=== PATIENT | male | born 1960 | race Caucasian/White ===

== ENCOUNTER → 2016-12-27 | Outpatient (CLI) | payer BC ==
[2016-12-27] MEDS: Sodium Chloride 0.9% 50 ML SDV FLUSH SCH (09:36)
[2016-12-27] MEDS: Iopamidol 612 MG/ML 75 ML Bottle IVPUSH ONE (09:36)
== END ==
LOC: KA.CT 09:03
PROVIDERS: ATTEND Family Medicine
DX: R10.84 Generalized abdominal pain (principal); K76.9 Liver disease, unspecified; N28.9 Disorder of kidney and ureter, unspecified; Z98.890 Other specified postprocedural states
CPT/HCPCS: 74177; Q9967

== ENCOUNTER 2021-08-30 14:51 | Emergency (ER) | payer BC ==
--- NOTE | 2021-08-30 15:00 | EDM.PDOC ---
ED HPI GENERAL MEDICAL PROBLEM - General Chief Complaint: Laceration Stated Complaint: LACERATION Time Seen by Provider: 08/30/21 14:54 Source of Information: Reports: Patient, Family - History of Present Illness INITIAL COMMENTS - FREE TEXT/NARRATIVE: Miguel, 60-year-old male, was siting in his crossbow when the limb struck the base of the left thumb, palmar surface. This caused 3 horizontal lacerations, 2 of which made full-thickness into the subcutaneous tissue. He has no other issues or complaints. Bleeding is controlled with direct pressure. Tetanus status is up-to-date. Onset: Today, Sudden Duration: Minutes: Location: Reports: Upper Extremity, Left Quality: Reports: Ache, Burning Left Hand Pain Score (Numeric/FACES): 8 - Related Data Allergies Allergy/AdvReac Type Severity Reaction Status Date / Time No Known Drug Allergies Allergy Other Verified 08/30/21 14:53 Home Meds: Home Meds ALPRAZolam [Xanax] 0.5 mg PO BID PRN 10/02/16 [History] Calcium Carbonate [Calcium] 500 mg PO DAILY PRN 10/02/16 [History] Docusate Sodium [Colace] 100 mg PO DAILY 10/02/16 [History] Multivit-Min/FA/Lycopen/Lutein [Centrum Silver Ultra Men's] 1 tab PO DAILY 10/02/16 [History] atenoloL [Atenolol] 50 mg PO DAILY 10/02/16 [History] Past Medical History - Past Health History Medical/Surgical History: Denies Medical/Surgical History Cardiovascular History: Reports: Hypertension Gastrointestinal History: Reports: Cholelithiasis Genitourinary History: Reports: UTI, Recurrent Musculoskeletal History: Reports: Arthritis Psychiatric History: Reports: None - Infectious Disease History Infectious Disease History: Reports: Chicken Pox, Measles, Mumps - Past Surgical History Musculoskeletal Surgical History: Reports: Knee Replacement Social & Family History - Family History Family Medical History: No Pertinent Family History ED ROS GENERAL - Review of Systems Review Of Systems: Comprehensive ROS is negative, except as noted in HPI. ED EXAM, SKIN/RASH Exam: See Below Text/Narrative:: Alert, oriented in no distress. He is able speak in full sentences with no respiratory distress demonstrated. There are no audible wheezes nor crackles. Focused examination to the left upper extremity shows 3 horizontal parallel lacerations to the base of the left thumb upon thenar eminence. Bleeding is controlled. They are clean with no debris noted. Distally, CMS is intact with no loss of sensation or function. With full extension of the thumb the proximal to do gape slightly and would benefit from suturing. No other injury is noted full range of motion to the digits and wrist. ED SKIN PROCEDURES - Laceration/Wound Repair Left Proximal Digit - 1st (Thumb) Appearance: Subcutaneous Distal NVT: Neuro & Vascular Intact Anesthetic Type: Local Local Anesthesia - Lidocaine (Xylocaine): 1% Plain Local Anesthetic Volume: 2cc Skin Prep: Providone-Iodine (Betadine) Exploration/Debridement/Repair: In a Bloodless Field Closed with: Sutures Lac/Wound length In cm: 1.5 Suture Size: 4-0 # of Sutures: 4 Suture Type: Nylon Drain Placement: No Sterile Dressing Applied: Nurse Tetanus Status Addressed: Yes Complications: No Course - Vital Signs Last Recorded V/S: Last Vital Signs Temp 96.1 F L 08/30/21 14:56 Pulse 77 08/30/21 14:56 Resp 18 08/30/21 14:56 BP 122/83 08/30/21 14:56 Pulse Ox 94 L 08/30/21 14:56 - Orders/Labs/Meds Meds: Medications Discontinued Medications Generic Name Dose Route Start Last Admin Trade Name Casimiroq PRN Reason Stop Dose Admin Diphtheria/Tetanus/Acell Pertussis 0.5 ml 08/30/21 15:41 08/30/21 15:44 Diphtheria,Pertussis(Acell),Tetanus Vaccine 0.5 Ml Syringe IM 08/30/21 15:42 0.5 ml .ONCE ONE Administration Lidocaine HCl 5 ml 08/30/21 14:57 08/30/21 15:14 Lidocaine 1% 5 Ml Sdv INJECT 08/30/21 14:58 1 ml ONETIME ONE Administration Neomycin/Polymyxin/Bacitracin 1 each 08/30/21 14:56 08/30/21 15:14 Bacitracin/Neomycin/Polymyxin B Oint 0.9 Gm U/D Packet TOP 08/30/21 14:57 1 each ONETIME ONE Administration Departure - Departure Time of Disposition: 16:05 Disposition: Home, Self-Care 01 Condition: Good Clinical Impression: Laceration of thumb Qualifiers: Encounter type: initial encounter Damage to nail status: without damage Foreign body presence: without foreign body Laterality: left Qualified Code(s): S61.012A - Laceration without foreign body of left thumb without damage to nail, initial encounter - Discharge Information *PRESCRIPTION DRUG MONITORING PROGRAM REVIEWED*: Not Applicable Instructions: Laceration Care, Adult, [id number], Sutures, [place], or Adhesive Wound Closure, [id number] Referrals: Shakir Ramachandran MD [Primary Care Provider] - Forms: ED Department Discharge Additional Instructions: Keep this clean and dry as possible. Change Band-Aid/dressing if soiled. Sutures will need to be removed and 7 to 10 days at your convenience. No soaking/swimming/dishwashing type immersion until sutures are removed. Use rubber gloves for protection if being exposed to submersion in water. Continue all your medications as directed and follow-up as needed. - Problem List & Annotations (1) Laceration of thumb SNOMED Code(s): 653236794 Code(s): S61.019A - LACERATION W/O FOREIGN BODY OF THMB W/O DAMAGE TO NAIL, INIT Status: Acute Qualifiers: Encounter type: initial encounter Damage to nail status: without damage Foreign body presence: without foreign body Laterality: left Qualified Code(s): S61.012A - Laceration without foreign body of left thumb without damage to nail, initial encounter (2) Immunization due SNOMED Code(s): 107540775 Code(s): Z23 - ENCOUNTER FOR IMMUNIZATION Status: Acute Priority: High - Problem List Review Problem List Initiated/Reviewed/Updated: Yes - Assessment/Plan Plan: Keep this clean and dry as possible. Change Band-Aid/dressing if soiled. Sutures will need to be removed and 7 to 10 days at your convenience. No soaking/swimming/dishwashing type immersion until sutures are removed. Use rubber gloves for protection if being exposed to submersion in water. Continue all your medications as directed and follow-up as needed.
[2021-08-30 15:05] VITALS: BP 122/83; PULSE 77
[2021-08-30] MEDS: Bacitracin/Neomycin/Polymyxin B Oint 0.9 GM U/D Packet TOP ONE (15:14)
[2021-08-30] MEDS: Diphtheria,Pertussis(Acell),Tetanus Vaccine 0.5 ML Syringe IM ONE (15:44)
== END 2021-08-30 15:50 | disposition home or self-care (01) ==
LOC: KA.ED 14:51
DX: S61.012A Laceration without foreign body of left thumb without damage to nail, initial encounter (principal); I10 Essential (primary) hypertension; Z79.899 Other long term (current) drug therapy; Z23 Encounter for immunization; W22.09XA Striking against other stationary object, initial encounter
CPT/HCPCS: 12001; 90471; 90715; 99282-25; 99283